=== PATIENT | male | born 1965 | race Caucasian/White ===

== ENCOUNTER 2017-03-29 17:43 | Inpatient (IN) | payer OTHER ==
[~2017-03-29] VITALS: Ht 185.4 cm; Wt 136.0 kg
[~2017-03-29 17:43] MED LIST: AMOXICILLIN875 MG PO; ATORVASTATIN CA20 MG PO; AUGMENTIN875 MG PO; AZITHROMYCIN250 MG PO; CELEBREX200 MG PO; FENOFIBRATE134 M1 NG; GLUCOPHAGE500 MG PO; IBUPROFEN800 MG PO; LEVEMIR100 UNIT/2 SC; LISINOPRIL5 MG PO; LOPID600 MG PO; LORTAB 5-325 M1 EACH PO; MIRALAX17 GM PO; NOVOLOG 10100 UNITS/ SC; PERCOCET 7.51 TABLET PO; PRILOSEC40 MG PO; RANITIDINE HCL300 MG PO; VENTOLIN HFA18 GM IH; VICODIN 5-3001 EACH PO; ZESTRIL,PRINIVI20 MG PO
[2017-03-29 18:47] LABS: ADD MIUA? YES; BILIRUBIN NEGATIVE; BLOOD NEGATIVE; COLOR YELLOW ((YELLOW)); GLUCOSE (STRIP) >=500; KETONES 20; LEUKOCYTES NEGATIVE; NITRITE NEGATIVE; PROTEIN (STRIP) 100; SPECIFIC GRAVITY 1.037 (1.000-1.030)
[2017-03-29 18:59] LABS: HEMATOCRIT 46.9 % (38.0-50.0); MCH 36.1 PG (29.0-34.0); MCHC 39.2 G/DL (30.0-36.0); MEAN PLAT.VOLUME 11.4 uM^3 (9.0-12.4); PLATELET COUNT 261 K/uL (156-360); RBC DIS.WIDTH-SD 43.8 % (39-53); WHITE BLOOD COUNT 13.4 K/uL (4.1-10.2)
[2017-03-29 19:04] LABS: BACTERIA 1+ /HPF; EPITHELIAL CELLS 1+ /HPF; MUCUS 2+ /LPF; RED BLOOD CELLS 0-5 /HPF (0-5); UCUL ADDED? NO; WHITE BLOOD CELLS 0-5 /HPF (0-5)
[2017-03-29 19:11] LABS: CHLORIDE 96 mEq/L (99-109); POTASSIUM 4.8 mEq/L (3.7-5.4); SODIUM 130 mEq/L (136-147)
[2017-03-29 19:13] LABS: GLUCOSE 224 mg/dL (70-99)
[2017-03-29 19:15] LABS: TOTAL BILIRUBIN 0.3 mg/dL (0.0-1.0)
[2017-03-29 19:17] LABS: ALKALINE PHOSPHATASE 62 IU/L (3-129); GFR ESTIMATE (CALCULATED) > 59 mL/min/
[2017-03-29 19:18] LABS: UREA NITROGEN (BUN) 14 mg/dL (9-23)
[2017-03-29 19:20] LABS: LIPASE 619 U/L (1.0-51.0)
[2017-03-29 21:42] LABS: SAMPLE HEMOLYSIS CHECK 4; SAMPLE ICTERIC CHECK 0; SAMPLE LIPEMIA CHECK 1; SERUM ETHYL ALCOHOL 14 mg/dL
[2017-03-29] MEDS ORDERED: ESOMEPRAZOLE MA40 MG PO (22:44)
[2017-03-29] MEDS ORDERED: NEURONTIN300 MG PO (22:46)
[2017-03-29] MEDS ORDERED: HUMALOG100 UNIT/1 SC (22:48)
[2017-03-29] MEDS ORDERED: OXYCODONE-APAP1 EAC6 PO (22:49)
[2017-03-29] MEDS ORDERED: DICLOFENAC POTA50 MG PO (22:50)
[2017-03-29] MEDS ORDERED: TOUJEO SOL300 UNIT/1 SC (22:51)
[2017-03-29] MEDS ORDERED: METFORMIN HCL1000 MG PO (22:52)
[2017-03-29] MEDS ORDERED: IBUPROFEN200 M1 PO (22:54)
[2017-03-29] MEDS ORDERED: TRILIPIX135 MG PO (22:58)
[2017-03-29] MEDS ORDERED: LISINOPRIL5 MG PO (22:58)
[2017-03-29 23:12] VITALS: BP 137/87
[2017-03-29 23:21] LABS: POINT-OF-CARE METER ID UU13113774
[2017-03-30 06:01] LABS: POINT-OF-CARE METER ID UU13113774
[2017-03-30 06:13] LABS: BASOPHIL COUNT 0.1 K/uL (0-0.1); EOSINOPHIL (%) 0.9 % (0-5); EOSINOPHIL COUNT 0.1 K/uL (0-0.3); HEMATOCRIT 44.3 % (38.0-50.0); IMMATURE GRANULOCYTE (%) 0.4 % (0.0-0.7); LYMPHOCYTE COUNT 1.3 K/uL (1.0-2.8); MCH 34.1 PG (29.0-34.0); MCV 92.1 FL (86-99); MONOCYTE (%) 10.3 % (3-12); MONOCYTE COUNT 1.1 K/uL (0-0.8); NEUTROPHIL (%) 75.6 % (45-76); PLATELET COUNT 212 K/uL (156-360); RBC DIS.WIDTH-CV 13.5 % (11.8-14.6); RBC DIS.WIDTH-SD 45.8 % (39-53); RED BLOOD COUNT 4.81 M/uL (4.00-5.50); WHITE BLOOD COUNT 10.6 K/uL (4.1-10.2)
[2017-03-30 06:50] VITALS: BP 136/74
[2017-03-30 07:21] LABS: ALKALINE PHOSPHATASE 53 IU/L (3-129); ANION GAP 9 MEQ/L (2-14); C-REACTIVE PROTEIN 56.1 MG/L (0-10); CHLORIDE 100 MEQ/L (99-109); GFR ESTIMATE (CALCULATED) > 59 mL/min/; GLUCOSE 224 mg/dL (70-99); HDL CHOLESTEROL 24 MG/DL (Desirable>=40); LIPASE 301 U/L (1.0-51.0); NON-HDL CHOLESTEROL 485 mg/dL (Desirable<160); POTASSIUM 4.7 MEQ/L (3.7-5.4); SAMPLE HEMOLYSIS CHECK 7; SAMPLE ICTERIC CHECK 7; SAMPLE LIPEMIA CHECK 7; SODIUM 133 MEQ/L (136-147); TOTAL BILIRUBIN 0.6 MG/DL (0.0-1.0); TOTAL CHOLESTEROL 509 mg/dL (Desirable<200); TRIGLYCERIDES 3700 MG/DL (Normal: <150); UREA NITROGEN (BUN) 9 mg/dL (9-23)
[2017-03-30 12:46] LABS: POINT-OF-CARE METER ID UU13113725
[2017-03-30 14:05] LABS: URINE TOTAL PROTEIN 16 MG/DL (0-10)
[2017-03-30 15:00] VITALS: BP 160/74
[2017-03-30] MEDS ORDERED: GABAPENTIN300 MG PO (15:38)
[2017-03-30] MEDS ORDERED: HUMALOG100 UNIT/1 SC (15:39)
[2017-03-30] MEDS ORDERED: MELOXICAM7.5 MG PO (15:40)
[2017-03-30 18:16] LABS: POINT-OF-CARE METER ID UU13113725
[2017-03-30 23:45] VITALS: BP 136/89
[2017-03-31 00:09] LABS: POINT-OF-CARE METER ID UU13113725
[2017-03-31 05:37] LABS: POINT-OF-CARE METER ID UU13113725
[2017-03-31 06:05] LABS: EOSINOPHIL (%) 1.1 % (0-5); EOSINOPHIL COUNT 0.1 K/uL (0-0.3); HEMATOCRIT 44.5 % (38.0-50.0); IMMATURE GRANULOCYTE (%) 0.3 % (0.0-0.7); INSTRUMENT ABS NEUTROPHIL CT 8.9 K/uL; LYMPHOCYTE COUNT 1.1 K/uL (1.0-2.8); MCH 32.5 PG (29.0-34.0); MCHC 35.1 G/DL (30.0-36.0); MCV 92.7 FL (86-99); MEAN PLAT.VOLUME 11.7 uM^3 (9.0-12.4); MONOCYTE (%) 9.3 % (3-12); NEUTROPHIL (%) 79.4 % (45-76); NEUTROPHIL COUNT 8.9 K/uL (1.8-6.4); PLATELET COUNT 171 K/uL (156-360); RBC DIS.WIDTH-CV 13.3 % (11.8-14.6); WHITE BLOOD COUNT 11.2 K/uL (4.1-10.2)
[2017-03-31 06:50] VITALS: BP 138/83
[2017-03-31 07:44] LABS: ERTH.SED.RATE 26 MM/HR (0-15)
[2017-03-31 11:22] LABS: ALKALINE PHOSPHATASE 61 IU/L (3-129); CHLORIDE 104 MEQ/L (99-109); GFR ESTIMATE (CALCULATED) > 59 mL/min/; GLOBULINS 2.4 G/DL (2.3-3.5); GLUCOSE 182 mg/dL (70-99); LIPASE 132 U/L (1.0-51.0); POTASSIUM 4.1 MEQ/L (3.7-5.4); SODIUM 138 MEQ/L (136-147); TOTAL BILIRUBIN 0.8 MG/DL (0.0-1.0); UREA NITROGEN (BUN) 9 mg/dL (9-23)
[2017-03-31 12:21] LABS: POINT-OF-CARE METER ID UU13113725
[2017-03-31 15:00] VITALS: BP 154/90
[2017-03-31 19:07] LABS: POINT-OF-CARE METER ID UU13113774
[2017-03-31 23:10] VITALS: BP 132/75
[2017-03-31 23:46] LABS: POINT-OF-CARE METER ID UU13113725
[2017-04-01 05:58] LABS: POINT-OF-CARE METER ID UU13113725
[2017-04-01 06:04] LABS: EOSINOPHIL (%) 2.6 % (0-5); EOSINOPHIL COUNT 0.2 K/uL (0-0.3); HEMATOCRIT 41.1 % (38.0-50.0); IMMATURE GRANULOCYTE (%) 0.3 % (0.0-0.7); INSTRUMENT ABS NEUTROPHIL CT 5.2 K/uL; LYMPHOCYTE COUNT 1.1 K/uL (1.0-2.8); MCH 32.6 PG (29.0-34.0); MCHC 34.3 G/DL (30.0-36.0); MCV 94.9 FL (86-99); MEAN PLAT.VOLUME 11.5 uM^3 (9.0-12.4); MONOCYTE (%) 10.2 % (3-12); MONOCYTE COUNT 0.7 K/uL (0-0.8); NEUTROPHIL (%) 71.9 % (45-76); NEUTROPHIL COUNT 5.2 K/uL (1.8-6.4); PLATELET COUNT 159 K/uL (156-360); RBC DIS.WIDTH-CV 13.7 % (11.8-14.6); RBC DIS.WIDTH-SD 48.4 % (39-53); RED BLOOD COUNT 4.33 M/uL (4.00-5.50); WHITE BLOOD COUNT 7.3 K/uL (4.1-10.2)
[2017-04-01 06:48] LABS: ALKALINE PHOSPHATASE 53 IU/L (3-129); ANION GAP 5 MEQ/L (2-14); CHLORIDE 107 MEQ/L (99-109); GFR ESTIMATE (CALCULATED) > 59 mL/min/; GLUCOSE 206 mg/dL (70-99); POTASSIUM 4.6 MEQ/L (3.7-5.4); SAMPLE HEMOLYSIS CHECK 1; SAMPLE ICTERIC CHECK 0; SAMPLE LIPEMIA CHECK 0; SODIUM 142 MEQ/L (136-147); UREA NITROGEN (BUN) 7 mg/dL (9-23)
[2017-04-01 07:00] LABS: TOTAL BILIRUBIN 0.6 MG/DL (0.0-1.0)
[2017-04-01 07:26] VITALS: BP 139/84
[2017-04-01 08:19] LABS: LIPASE 44 U/L (1.0-51.0)
[2017-04-01 11:21] LABS: POINT-OF-CARE METER ID UU13113725
[2017-04-01 16:05] VITALS: BP 158/87
[2017-04-01 17:24] LABS: ANION GAP 14 MEQ/L (2-14); SAMPLE HEMOLYSIS CHECK 1; SAMPLE ICTERIC CHECK 0; SAMPLE LIPEMIA CHECK 1
[2017-04-01 17:52] LABS: POINT-OF-CARE METER ID UU13113725
[2017-04-01] MEDS ORDERED: NICOTINE PATCH1 EAC2 TD (19:11)
[2017-04-01] MEDS ORDERED: ATORVASTATIN CA40 MG PO (19:14)
[2017-04-02 12:55] LABS: ALBUMIN 3.82 G/DL (3.6-4.9); ALBUMIN PERCENT 61.6 % (49.3-67.1); ALPHA-1 GLOBULIN 0.29 G/DL (0.15-0.40); ALPHA-1 PERCENT 4.7 % (2.1-5.5); ALPHA-2 GLOBULIN 0.73 G/DL (0.45-0.85); ALPHA-2 PERCENT 11.7 % (6.2-11.6); BETA PERCENT 12.8 % (8.9-15.8); GAMMA PERCENT 9.2 % (8.6-18.6)
== END 2017-04-01 20:17 | disposition home or self-care (01) | DRG 642 ==
LOC: RME 17:43 → EME 17:43 → 5EAST 21:20 → EDOF 21:20 → ENRESERV 21:28 → 5EAST 22:52
PROVIDERS: Family Medicine Sports Medicine; Internal Medicine Gastroenterology
DX: E78.1 Pure hyperglyceridemia (principal); K85.90 Acute pancreatitis without necrosis or infection, unspecified; K21.9 Gastro-esophageal reflux disease without esophagitis; I10 Essential (primary) hypertension; E66.9 Obesity, unspecified; K80.20 Calculus of gallbladder without cholecystitis without obstruction; K76.0 Fatty (change of) liver, not elsewhere classified; F17.210 Nicotine dependence, cigarettes, uncomplicated; E78.5 Hyperlipidemia, unspecified; M54.5 Low back pain; G89.29 Other chronic pain; E11.65 Type 2 diabetes mellitus with hyperglycemia; Z80.42 Family history of malignant neoplasm of prostate; Z79.4 Long term (current) use of insulin; Z71.6 Tobacco abuse counseling
CPT/HCPCS: 74177; 76705; 80053; 80061; 81003; 82330; 82565; 82948; 83690; 84165; 84166; 84478; 84520; 85025; 85027; 85651; 86140; 99202; 99281; 99284; G0480; J1650; J1815; J2270; J2405; J3010; J7030

== ENCOUNTER 2017-06-24 19:47 | Emergency (ER) | payer OTHER ==
[~2017-06-24] VITALS: Ht 185.4 cm; Wt 148.0 kg
[~2017-06-24 19:47] MED LIST changes: +ATORVASTATIN CA40 MG PO; +DICLOFENAC POTA50 MG PO; +ESOMEPRAZOLE MA40 MG PO; +GABAPENTIN300 MG PO; +HUMALOG100 UNIT/1 SC; +IBUPROFEN200 M1 PO; +MELOXICAM7.5 MG PO; +METFORMIN HCL1000 MG PO; +NEURONTIN300 MG PO; +NICOTINE PATCH1 EAC2 TD; +OXYCODONE-APAP1 EAC6 PO; +TOUJEO SOL300 UNIT/1 SC; +TRILIPIX135 MG PO
[2017-06-24 20:45] LABS: HEMOGLOBIN 15.4 G/DL (12.5-16.6); MCH 32.4 PG (29.0-34.0); MCHC 34.2 G/DL (30.0-36.0); MCV 94.5 FL (86-99); PLATELET COUNT 236 K/uL (156-360); RBC DIS.WIDTH-SD 48.4 % (39-53); RED BLOOD COUNT 4.76 M/uL (4.00-5.50); WHITE BLOOD COUNT 8.9 K/uL (4.1-10.2)
[2017-06-24 20:55] LABS: CHLORIDE 105 mEq/L (99-109); POTASSIUM 4.3 mEq/L (3.7-5.4); SODIUM 139 mEq/L (136-147)
[2017-06-24 20:56] LABS: GLUCOSE 221 mg/dL (70-99)
[2017-06-24 21:00] LABS: CREATININE 1.4 mg/dL (0.6-1.3); GFR ESTIMATE (CALCULATED) 57 mL/min/ (58.99-99999)
[2017-06-24 21:01] LABS: UREA NITROGEN (BUN) 27 mg/dL (9-23)
[2017-06-24 21:42] VITALS: BP 141/78
== END 2017-06-24 21:43 | disposition home or self-care (01) ==
LOC: EME 19:47
DX: R06.00 Dyspnea, unspecified (principal); N28.9 Disorder of kidney and ureter, unspecified; R60.0 Localized edema; E11.9 Type 2 diabetes mellitus without complications; Z79.4 Long term (current) use of insulin; I10 Essential (primary) hypertension; E78.5 Hyperlipidemia, unspecified; Z86.73 Personal history of transient ischemic attack (TIA), and cerebral infarction without residual deficits; F17.200 Nicotine dependence, unspecified, uncomplicated
CPT/HCPCS: 71046; 80048; 83880; 85027; 99281; 99284